=== PATIENT | female | born 1965 | race Hispanic/Latino ===

== ENCOUNTER 2020-07-21 01:44 | Emergency (ER) | payer OTHER, SELFPAY ==
[2020-07-21] MEDS ORDERED: Oxymetazoline HCl 0.05% (30 ML BOT) ONE (02:00)
[2020-07-21] MEDS ORDERED: Silver Nitrate Application 1 EACH ONE (02:00)
[2020-07-21] MEDS ORDERED: Bacitracin 1 PK ONE (02:08)
== END 2020-07-21 02:25 | disposition home or self-care (01) ==
LOC: ERS 01:44
DX: R04.0 Epistaxis (principal)
CPT/HCPCS: 30903